=== PATIENT | female | born 1970 | race Caucasian/White ===

== ENCOUNTER 2025-03-20 10:52 | Emergency (ER) | payer OTHER, SELFPAY ==
[2025-03-20 11:05] VITALS: BP 126/112; PULSE 99; RESP 18; TEMP 36.9; O2SAT 97
--- NOTE | 2025-03-20 11:10 | ED_ITS ---
HPI - Neck Pain/Injury General Chief Complaint: Neck Pain/Injury Stated Complaint: Neck Pain Time Seen by Provider: 03/20/25 11:12 Source: patient Mode of arrival: ambulatory Limitations: no limitations History of Present Illness HPI Narrative: 54 y/o female presented for c/o acute on chronic left sided neck pain. States she has been lifting her arms over head more often at her job, which often flares the neck pain. Endorses occasional numbness to the left index finger. Pain radiates to the left side of neck and trapezius area. States she has had Pain for about 30 years, and has had MRI showing bulging disc. States she was told surgery would help but she does not want to do surgery. Pt takes Tylenol occasionally. Denies chest pain, palpitations, dizziness, n/v/d/f/c. Related Data Allergies Allergy/AdvReac Type Severity Reaction Status Date / Time No Known Allergies Allergy Verified 03/20/25 10:53 Review of Systems Review of Systems: CONSTITUTIONAL: Denies body aches, fever, chills, or sweats. EYES: Denies visual changes, redness, or discharge. ENT: Denies rhinorrhea, congestion, sore throat, or otalgia. CARDIOVASCULAR: Denies chest pain, palpitations, or edema. RESPIRATORY: Denies cough or dyspnea. GASTROINTESTINAL: Denies abdominal pain, nausea, vomiting, or diarrhea. GENITOURINARY: Denies dysuria or hematuria. SKIN: Denies rash, itching, or wounds. MUSCULOSKELETAL: Denies back pain, joint pain, or myalgia. NEUROLOGIC: Denies headache, numbness, tingling, or weakness. PSYCH: Denies depression or anxiety. All systems reviewed & are unremarkable except as noted in HPI and below [facility] Social History Social History (Updated 03/20/25 @ 11:30 by Dina Javier, HEALTH AND FITNESS PROFESSOR) Smoking status: Current every day smoker Comments At time of signature, I have reviewed and agree with nursing past medical, surgical, social and family history unless otherwise noted. Please see nursing chart for further information. There is no relevant family history pertinent to the presenting complaint Exam Narrative: GENERAL: Well-appearing. EYES: EOMI. No redness or drainage. Conjunctivae normal. ENT: Mucous membranes pink and moist. NECK: slightly decreased AROM due to pain, no VPT CHEST: No respiratory distress. Clear to auscultation. HEART: Regular rate and rhythm. No murmur appreciated. Normal peripheral pulses. EXTREMITIES: Equal edge drummer strength. Normal range of motion. No edema. SKIN: Warm, dry, no rash. Capillary refill normal. Normal skin turgor. NEURO: No focal deficits. Alert and oriented x3. Gait steady. Course Course Emergency Course: Patient is aware of diagnosis, understands and agrees to treatment plan. Anticipatory guidance given. Patient agrees to follow-up as directed and is aware of reasons to seek care at the emergency department. Portions of this record may have been created with voice recognition software Level of Care: Express Care Visit Vital Signs Vital signs: Vital Signs Temperature 98.4 F 03/20/25 11:05 Pulse Rate 99 03/20/25 11:05 Respiratory Rate 18 03/20/25 11:05 Blood Pressure 126/112 H 03/20/25 11:05 Pulse Oximetry 97 03/20/25 11:05 Oxygen Delivery Room Air 03/20/25 11:05 Temperature 98.4 F 03/20/25 11:05 Pulse Rate 99 03/20/25 11:05 Respiratory Rate 18 03/20/25 11:05 Blood Pressure 126/112 H 03/20/25 11:05 Pulse Oximetry 97 03/20/25 11:05 Oxygen Delivery Room Air 03/20/25 11:05 MDM - Neck Pain/Injury MDM Narrative Medical decision making narrative: Discussed physical exam findings; appears to be acute on chronic neck pain. Advised to f/u with a pcp for further management after completing the meds. Shared decision making pt declines imaging today as she has had MRI in the past. Advised supportive measures and signs/symptoms to go to the ER. Pt is appropriate for outpt treatment and f/u. Differential Diagnosis Differential diagnosis: Likely disc disorder of cervical region, whiplash injury to neck, closed subluxation of cervical spine, cervical radiculopathy, vertebral artery dissection, torticollis and strain of neck muscle Discharge Plan Discharge Clinical Impression: Neck pain Patient Disposition: Home Condition: Stable Instructions: Antibiotic Form, Acute Neck Pain (ED) Additional Instructions: Rest. Avoid pushing, pulling, lifting or anything that worsens the symptoms Tylenol 1000mg every 8 hours as needed You can alternate with ibuprofen 600mg Take the steroid as directed Cyclobenzaprine (Flexeril) is a muscle relaxer. Take it as directed. It can cause drowsiness so do not drive or operate machinery until you know how it makes you feel. Alternate ice/heat to the site. Lidocaine or salon pas pain patch or use pain cream like icy/hot or biofreeze. Follow up with your primary care provider as needed in 1 week Go to the ER for worsening symptoms or concerns Patient Language: Turkmen Prescriptions: New cyclobenzaprine 10 mg tablet 10 mg PO TID PRN (Reason: muscle spasm) Qty: 12 0RF prednisone 20 mg tablet 20 mg PO DAILY Qty: 18 0RF Rx Instructions: take 3 tablets daily for 3 days, then 2 tablets daily for 3 days then 1 tablet daily for 3 days Follow-up/Referrals: PHYSICIAN,IMMIGRATION [facility] [Primary Care Provider, Internal Medicine] Time of Disposition: 11:25
== END 2025-03-20 11:31 | disposition home or self-care (01) ==
PROVIDERS: Emergency Provider Nurse Practitioner Family
DX: M54.2 Cervicalgia (principal); F17.200 Nicotine dependence, unspecified, uncomplicated
CPT/HCPCS: 99213; G0463